=== PATIENT | male | born 1965 | race Caucasian/White ===

== ENCOUNTER 2019-11-11 11:54 | Day surgery (SDC) | payer BC, OTHER ==
--- NOTE | 2019-11-10 10:15 | P.HPIHPCON ---
History of Present Illness H&P Date: 11/10/19 Chief Complaint: prostate cancer Mr Mancini is 54 yo male with hx of burton 7(4+3) prostate cancer he elected to proceed with radiation therapy. I discussed with him the option of SpaceOR, I discussed the risk and benefit of the procedure. I discussed with him the main benefit is to reduce the effect of radiation to the rectum. I discussed risk of bleeding and infection. He understood all the risks and agreed to proceed with SpaceOR placement Consent for Procedure: I have explained the operation/procedure to the patient, including the risks, benefits, side effects, alternative therapies (including not receiving the proposed treatment or service), the likelihood of the patient achieving his/her goals, and potential recuperation problems for the procedure/sedation/analgesia, as well as any blood products, if indicated. I also explained to the patient the risks, benefits and side effects of the alternatives, as well as the risks related to not receiving the proposed procedure, care, treatment, or services. Surgical - Exam - General well developed, well nourished - Eyes PERRL, normal ocular movement - Respiratory normal expansion, normal respiratory effort - Psychiatric oriented to time, oriented to person, oriented to place Assessment and Plan Assessment: 54 yo male with hx of burton 7 (4+3) prostate cancer -OR for SpaceOR placement
[2019-11-10 13:11] VITALS: BMI 39.3
[~2019-11-11 11:54] MED LIST: DEXAMETHASONE SOD PHOSPHATE 10 MG/ML 1 ML VIAL IV ONE; HYDROmorphone 0.5 MG/0.5 ML SYRINGE IVP PRN; LACTATED RINGERS 1,000 ML IV SCH; LIDOCAINE 1% (10MG/ML) FOR IV START INTRADERMA PRN; ONDANSETRON 4 MG/2 ML VIAL IVP ONE; ONDANSETRON 4 MG/2 ML VIAL IVP PRN
[2019-11-11 13:02] LABS: Glucose,Whole Blood 138 mg/dL (75-99)
[2019-11-11] MEDS ORDERED: MIDAZOLAM 2 MG/2 ML VIAL ONE (14:00)
[2019-11-11] MEDS ORDERED: ROCURONIUM BROMIDE 10 MG/ML 5 ML VIAL IV ONE (14:00)
[2019-11-11] MEDS ORDERED: SUCCINYLCHOLINE CHLORIDE 100 MG/5 ML SYR IV ONE (14:00)
[2019-11-11] MEDS ORDERED: LIDOCAINE 1% INJ 10MG/ML (20 ML MDV) ONE (14:00)
[2019-11-11] MEDS ORDERED: fentaNYL (PF) 50 MCG/ML 2 ML AMP ONE (14:00)
[2019-11-11] MEDS ORDERED: PROPOFOL 10 MG/ML 20 ML VIAL IV ONE (14:00)
[2019-11-11] MEDS ORDERED: hydrALAZINE HCL 20 MG/ML 1 ML VIAL IVP ONE (14:50)
[2019-11-11] MEDS ORDERED: LACTATED RINGERS 1,000 ML IV ONE (14:58)
--- NOTE | 2019-11-11 15:01 | P.OP ---
Date of Procedure: 11/11/19 Preoperative Diagnosis: prostate cancer Postoperative Diagnosis: same Procedure(s) Performed: SpaceOR placement Implants: SpaceOR gel Anesthesia: ELROY Surgeon: Wil Valdovinos Estimated Blood Loss (ml): 0 Pathology: none sent Condition: stable Disposition: PACU Indications for Procedure: Mr Mancini is 54 yo male with hx of burton 7(4+3) prostate cancer he elected to proceed with radiation therapy. I discussed with him the option of SpaceOR, I discussed the risk and benefit of the procedure. I discussed with him the main benefit is to reduce the effect of radiation to the rectum. I discussed risk of bleeding and infection. He understood all the risks and agreed to proceed with SpaceOR placement Description of Procedure: The patient was taken to the operating room and placed in the dorsolithotomy position, with his legs supported in Ignacio stirrups. The external genitalia was prepped and draped sterilely. The BK transrectal ultrasound probe was placed intrarectally. The prostate was imaged. The probe was then placed within the stabilizing stand. A spinal needle was advanced under ultrasonic guidance to the level of the urogenital diaphragm, and lidocaine was used to infiltrate the tissues as the needle was withdrawn. The fiducial marker were then implanted. marker were placed at left mid,left anterior apex and right mid. Next, the SpaceOAR needle was passed through the midline of the perineum, 1-2 cm anterior to the anal opening. The needle was slowly advanced under ultrasonic guidance until the needle tip was located within the fat plane between the prostate and rectum, at the level of the mid prostate gland. The needle was confirmed to be midline on the axial imaging. A small amount of normal saline was injected for hydrodissection. Next, the SpaceOAR components were mixed and loaded into the Y connector per protocol. The Y connector was then connected to the needle, and the components were injected slowly over a course of approximately 12 seconds. A total of 10 ml was injected. Significant distance was created between the prostate and rectum, as desired. It should be noted that at no point was there any concern of rectal perforation. The needle was withdrawn, as well as the transrectal ultrasound probe, and the procedure was terminated. The patient tolerated the procedure well and was taken to the recovery room in stable condition
[2019-11-11 15:08] VITALS: TEMP 97
[2019-11-11 15:15] LABS: Glucose,Whole Blood 152 mg/dL (75-99)
[2019-11-11 15:18] VITALS: RESP 16
[2019-11-11 16:00] VITALS: BP 143/87; PULSE 68
== END 2019-11-11 16:13 | disposition home or self-care (01) ==
LOC: OR 11:54
PROVIDERS: ATTEND Urology
DX: C61 Malignant neoplasm of prostate (principal); I10 Essential (primary) hypertension; E78.5 Hyperlipidemia, unspecified; Z87.891 Personal history of nicotine dependence; E11.9 Type 2 diabetes mellitus without complications; F32.9 Major depressive disorder, single episode, unspecified; K21.9 Gastro-esophageal reflux disease without esophagitis; Z86.69 Personal history of other diseases of the nervous system and sense organs; Z97.2 Presence of dental prosthetic device (complete) (partial); Z79.1 Long term (current) use of non-steroidal anti-inflammatories (NSAID); Z79.84 Long term (current) use of oral hypoglycemic drugs; Z79.891 Long term (current) use of opiate analgesic; Z79.899 Other long term (current) drug therapy
CPT/HCPCS: 55874; J2250; J1100; J0690; J2405; J2001; J3010; J0330; J2704

== ENCOUNTER → 2021-05-31 | Day surgery (SDC) | payer OTHER ==
[2021-05-30 11:24] VITALS: BMI 41.5
[~2021-05-31] MED LIST changes: +ALPRAZolam 0.25 MG TAB PO PRN; +ALPRAZolam 0.5 MG TAB PO PRN; +ASPIRIN 325 MG TAB PO ONE; +ATORVASTATIN 80 MG TAB PO ONE; -DEXAMETHASONE SOD PHOSPHATE 10 MG/ML 1 ML VIAL IV ONE; +HEPARIN SODIUM 1,000 UN/ML (10ML VL) ONE; -HYDROmorphone 0.5 MG/0.5 ML SYRINGE IVP PRN; +IOPAMIDOL-370 125ML BTL INJ ONE; -LACTATED RINGERS 1,000 ML IV SCH; -LIDOCAINE 1% (10MG/ML) FOR IV START INTRADERMA PRN; +LIDOCAINE 1% INJ 10MG/ML (20 ML MDV) ONE; +LIDOCAINE 1% INJ 10MG/ML (20 ML MDV) SQ ONE; +MIDAZOLAM 2 MG/2 ML VIAL IV ONE; +NITROGLYCERIN SL TABS 0.4 MG TAB SUBLINGUAL PRN; -ONDANSETRON 4 MG/2 ML VIAL IVP ONE; -ONDANSETRON 4 MG/2 ML VIAL IVP PRN; +SODIUM CHLORIDE 0.9% 1,000 ML in EMPTY BAG 1 BAG IV SCH; +VERAPAMIL 2.5 MG/ML 2 ML AMP ONE; +VERAPAMIL SYRINGE (5 MG/10 ML) INTRAARTER ONE; +fentaNYL (PF) 50 MCG/ML 2 ML AMP IV ONE; +fentaNYL (PF) 50 MCG/ML 2 ML AMP ONE
[2021-05-31 06:58] LABS: Glucose,Whole Blood 136 mg/dL (75-99)
[2021-05-31 07:20] VITALS: TEMP 97.6
[2021-05-31] MEDS: HEPARIN SODIUM 1,000 UN/ML (10ML VL) IV ONE ×3 (07:49→08:36)
[2021-05-31 10:42] VITALS: BP 108/70; PULSE 67; RESP 14
--- NOTE | 2021-05-31 10:52 | CC ---
CARDIAC CATHETERIZATION REPORT INDICATION: This is a 56-year-old gentleman who presented to us with chest pain and had a stress test that showed a partially reversible inferior wall defect. He was advised to undergo cardiac catheterization for further evaluation. Patient has been explained risks, benefits and alternatives, understood and accepted. PROCEDURE NOTE: After obtaining informed consent, left heart catheterization and coronary angiogram were performed via the right radial artery using size 3.5 right and left Elise and a pigtail catheter. Patient tolerated the procedure well without any obvious immediate complications. He received moderate conscious sedation. Total sedation time was 20 minutes. We obtained right radial artery access using a micropuncture needle, and catheter and wire were manipulated into the ascending aorta under fluoroscopic guidance, where the catheters were exchanged. FINDINGS: HEMODYNAMICS: Left ventricular end-diastolic pressure is 8 to 10 mm. There is no significant gradient across the aortic valve. LEFT VENTRICULOGRAM: Left ventriculogram was not performed. ANGIOGRAPHIC DATA Right coronary artery. Right coronary artery is a large dominant vessel that is totally occluded in the proximal part with extensive collaterals to the distal RCA. Left main coronary artery is a normal-sized vessel and is free of stenosis. It divides into left anterior descending coronary artery and circumflex coronary artery. LAD and its branches are free of significant stenosis. Circumflex coronary artery gives off a large-caliber OM branch which is free of significant disease. The AV groove circumflex appears occluded. CONCLUSIONS: Severe two-vessel coronary artery disease as described above with a stress test abnormality in the right coronary artery distribution. PLAN: I am going to review the angiographic data with Dr. Weiner, the on-call mold filler, and decide on catheter-based revascularization of the right coronary artery. MMODL / IJN: [id number] /
--- NOTE | 2021-05-31 17:57 | P.OP ---
Description of Procedure: PROCEDURES PERFORMED: Right coronary angiography, attempted wiring of RCA INDICATION: Chest pain with exertion concerning for angina, abnormal stress test HPI: Patient is a pleasant 56 year old male who has been having chest pain off and on for a few years however felt to be worse recently, fairly consistently with exertion. Patient had diagnostic catheterization which showed RCA MACHINIST MATE as well as subtotalled circumflex which was small caliber. Given some concern of a more acute process within the last few weeks with worsened symptoms the RCA lesion was felt maybe a softer plaque. Therefore the decision was made to perform wiring and possible PCI. He has noted blood in his stool as well. PROCEDURE: After the risks, benefits and alternatives of the above mentioned procedure explained in detail with the patient, informed consent was obtained. Patient had already been taken to the catheterization lab and prepped and draped in usual fashion. A 6-Syriac sheath had already been placed in the right radial artery. Heparin was given. Initially attempted a 6Fr AL 0.75 and AL 1.0 however not adequately engaged therefore a 6Fr AL 2.0 guide was used to engage the RCA. Using a guideliner and a Supercross microcatheter, initially we attempted wiring with a 0.014 BMW wire then with a 0.014 Fielder XT. Antegrade approach was not proving easily accessible and due to contrast limit, further attempts were aborted. The right radial sheath was removed and a TR band was placed with hemostasis achieved. The patient tolerated the procedure well. Patient was transported back to the post catheterization holding area in stable condition. Conscious Sedation: Patient was monitored under the direct supervision of vision of myself for conscious sedation using Versed and fentanyl for a total duration of 30 minutes FINAL IMPRESSION: 1. RCA MACHINIST MATE and subototally occluded circumflex 2. Recent hematochezia PLAN: 1. Aggressive risk factor modification per most recent ACC/AHA guidelines. 2. Recommend trial of dual antiplatelets to ensure hgb, hematochezia stay stable. If patient remains stable and still has angina would recommend reattempt at MACHINIST MATE PCI RCA.
== END ==
LOC: CATHCVL 06:05
PROVIDERS: ATTEND Internal Medicine Cardiovascular Disease
DX: I25.10 Atherosclerotic heart disease of native coronary artery without angina pectoris (principal); I10 Essential (primary) hypertension; E78.5 Hyperlipidemia, unspecified; Z82.49 Family history of ischemic heart disease and other diseases of the circulatory system; Z72.0 Tobacco use
CPT/HCPCS: 93458; C1769 ×2; C1887 ×4; C1894; J2250; J2001; J3010; J1644; Q9967

== ENCOUNTER → 2021-07-04 | Day surgery (SDC) | payer OTHER ==
[2021-07-02 16:17] VITALS: BMI 40.4
[~2021-07-04] MED LIST changes: -ASPIRIN 325 MG TAB PO ONE; +ASPIRIN 325 MG TAB PO STA; -ATORVASTATIN 80 MG TAB PO ONE; +ATORVASTATIN 80 MG TAB PO STA; -HEPARIN SODIUM 1,000 UN/ML (10ML VL) ONE; +HEPARIN SODIUM,PORCINE 10,000 UNIT in SODIUM CHLORIDE 0.9% 1,000 ML IRRIGATION PRN; +HEPARIN SODIUM,PORCINE 2,500 UNIT in SODIUM CHLORIDE 0.9% 250 ML IRRIGATION PRN; -IOPAMIDOL-370 125ML BTL INJ ONE; -LIDOCAINE 1% INJ 10MG/ML (20 ML MDV) ONE; -LIDOCAINE 1% INJ 10MG/ML (20 ML MDV) SQ ONE; -MIDAZOLAM 2 MG/2 ML VIAL IV ONE; -VERAPAMIL 2.5 MG/ML 2 ML AMP ONE; -VERAPAMIL SYRINGE (5 MG/10 ML) INTRAARTER ONE; -fentaNYL (PF) 50 MCG/ML 2 ML AMP IV ONE; -fentaNYL (PF) 50 MCG/ML 2 ML AMP ONE
== END ==
LOC: CATHCVL 10:51
PROVIDERS: ATTEND Internal Medicine
DX: Z53.9 Procedure and treatment not carried out, unspecified reason (principal)

== ENCOUNTER 2021-08-08 10:17 | Day surgery (SDC) | payer OTHER ==
[2021-08-07 09:21] VITALS: BMI 41.5
[~2021-08-08 10:17] MED LIST changes: +ASPIRIN 325 MG TAB PO ONE; -ASPIRIN 325 MG TAB PO STA; +ATORVASTATIN 80 MG TAB PO ONE; -ATORVASTATIN 80 MG TAB PO STA; -SODIUM CHLORIDE 0.9% 1,000 ML in EMPTY BAG 1 BAG IV SCH
[2021-08-08] MEDS ORDERED: CLOPIDOGREL 75 MG TAB ONE ×2 (10:42→10:53)
[2021-08-08] MEDS: SODIUM CHLORIDE 0.9% 1,000 ML in EMPTY BAG 1 BAG IV SCH ×3 (10:45→23:11)
[2021-08-08 10:51] LABS: Glucose,Whole Blood 122 mg/dL (70-110)
[2021-08-08 11:13] LABS: Basophils # (A) 0.1 k/uL (0-0.2); Basophils % (A) 2 %; Eosinophils # (A) 0.2 k/uL (0-0.7); Eosinophils % (A) 3 %; HCT 38.5 % (39.0-53.0); Lymphocytes % (A) 19 %; MCH 29.5 pg (25.0-35.0); MCHC 33.8 g/dL (31.0-37.0); MCV 87.2 fL (80.0-100.0); Mean Platelet Volume 7.7; Monocytes # (A) 0.4 k/uL (0-1.0); Monocytes % (A) 7 %; Neutrophils # (A) 3.8 k/uL (1.3-7.7); Neutrophils % (A) 68 %; Platelet Count 190 k/uL (150-450); RBC 4.42 m/uL (4.30-5.90); RDW 14.9 % (11.5-15.5); WBC 5.6 k/uL (3.8-10.6)
[2021-08-08] MEDS ORDERED: fentaNYL (PF) 50 MCG/ML 2 ML AMP ONE (13:52)
[2021-08-08] MEDS ORDERED: HEPARIN SODIUM 1,000 UN/ML (10ML VL) ONE ×2 (13:52→15:04)
[2021-08-08] MEDS ORDERED: VERAPAMIL 2.5 MG/ML 2 ML AMP ONE (13:52)
[2021-08-08] MEDS ORDERED: fentaNYL (PF) 50 MCG/ML 2 ML AMP IV ONE (14:03)
[2021-08-08] MEDS ORDERED: MIDAZOLAM 2 MG/2 ML VIAL IV ONE (14:03)
[2021-08-08] MEDS: LIDOCAINE 1% INJ 10MG/ML (30 ML VIAL-PF) SQ ONE ×3 (14:05→14:12)
[2021-08-08] MEDS ORDERED: LIDOCAINE 1% INJ 10MG/ML (30 ML VIAL-PF) SQ ONE ×2 (14:06→14:08)
[2021-08-08] MEDS ORDERED: VERAPAMIL SYRINGE (5 MG/10 ML) INTRAARTER ONE ×2 (14:08→14:10)
[2021-08-08] MEDS: HEPARIN SODIUM 1,000 UN/ML (10ML VL) IV ONE ×7 (14:13→15:35)
[2021-08-08] MEDS ORDERED: IOPAMIDOL-370 125ML BTL INJ ONE ×2 (15:53→15:54)
[2021-08-08] MEDS ORDERED: ZOLPIDEM 5 MG TAB PO PRN (16:20)
[2021-08-08] MEDS ORDERED: RX INFO: IV CONTRAST WAS GIVEN 1 EACH MISC MISCELLANE PRN (16:20)
[2021-08-08] MEDS ORDERED: NITROGLYCERIN SL TABS 0.4 MG TAB SUBLINGUAL PRN (16:20)
[2021-08-08] MEDS ORDERED: ATROPINE SULFATE 0.1 MG/ML 10ML SYRINGE IV PRN (16:20)
[2021-08-08] MEDS ORDERED: MAG HYDROX/AL HYDROX/SIMETH 30 ML CUP PO PRN (16:20)
--- NOTE | 2021-08-08 16:20 | P.PRCINT ---
Percutaneous Coronary Int. - Percutaneous Coronary Intervention Percutaneous Coronary Intervention: PROCEDURES PERFORMED: Bilateral coronary angiography, FORMS BUILDER procedure, PCI proximal to distal RCA with overlapping 4.0 x 28mm, 4.0 x 38mm and 3.5 x 33mm Xience VENU, post dilated mid portion with a 4.0 NC balloon INDICATION: CAD, class 3 angina HISTORY: Patient is a pleasant 56 year old male with history of CAD with documentation of FORMS BUILDER RCA who has been having frequent chest pain even at rest and with exertion despite antianginals and therefore was recommended to have FORMS BUILDER procedure. CONSENT:I have discussed the risks, benefits and alternative therapies for the above-mentioned procedure and for both sedation/analgesia as well as necessary blood product administration, if indicated, as they pertain to this patient. The patient has indicated understanding and acceptance of the risks and procedures discussed. PROCEDURE: After the risks, benefits and alternatives of the above mentioned procedure explained in detail with the patient, informed consent was obtained. Patient was taken to the catheterization lab and prepped and draped in usual fashion. 1% lidocaine was used to anesthetize the right radial artery. A 6- [place] Citizen sheath was placed in the right radial artery using modified Seldinger technique. 1% Lidocaine was used to anesthetize the right femoral artery and using micropuncture technique and ultrasound guidance a 8-[place] Citizen sheath was placed. The RCA was initially engaged with a 8-[place] Citizen AL 2 guide however was somewhat 2-D throated and therefore this was changed to a 8-[place] AL-1 guide. The left coronary artery was engaged with a 6-[place] Citizen EBU 3.5 guide. Simultaneous bilateral injections were performed which did show a long FORMS BUILDER segment of approximately 40 mm. Using a 0.014 Fielder XT in a Corsair microcatheter and with guideliner support, the lesion was able to be wired. The wire was freely moving and therefore the Corsair was moved distally and there was blood return from the Corsair. Small injection with contrast verified intraluminal positioning. Initially the wire was exchanged for a BMW wire however did not have enough support and therefore this was exchanged for a 0.014 GrandSlam wire. Next balloon angioplasty was performed with a 1.0 and then 1.5 and then 2.0 balloons. Next IVUS was performed which showed intraluminal position and reference vessel 3.5mm distally and 4.0 proximally. Therefore overlapping Xience VENU stents initially with a 3.5 x 33 mm distally, 4.0 x 38 mm in the mid segment and 4.0 x 28 mm to the ostium were placed. The midportion of the stent was postdilated with a 4.0 noncompliant balloon. The wire was pulled and final angiograms were performed. Preintervention there was 100% stenosis and JACI 0 flow and postintervention there was 0% stenosis and JACI-3 flow. The right radial sheath was removed and a TR band was placed with hemostasis achieved. A right femoral angiogram showed adequate anatomy for closure and therefore an 8-[place] Citizen Angio-Seal was placed. The patient tolerated the procedure well. Patient was transported back to the post catheterization holding area in stable condition. Conscious Sedation: Patient was monitored under the direct supervision of vision of myself for conscious sedation using Versed and fentanyl for a total duration of 92 minutes HEMODYNAMICS: Aorta: 132/76 SELECTIVE CORONARY ARTERIOGRAPHY: LEFT MAIN: Not imaged, see diagnostic note LEFT ANTERIOR DESCENDING CORONARY ARTERY: Not imaged, see diagnostic note LEFT CIRCUMFLEX CORONARY ARTERY: Not imaged, see diagnostic note RIGHT CORONARY ARTERY: The right coronary artery is a large caliber vessel which gives off a PDA and PLV branch and is the dominant vessel. There is 100% proximal RCA stenosis. FINAL IMPRESSION: 1. FORMS BUILDER of RCA with 100% stenosis 2. S/p successful PCI proximal to distal RCA with overlapping 4.0 x 28mm, 4.0 x 38mm and 3.5 x 33mm Xience VENU, post dilated mid portion with a 4.0 NC balloon PLAN: 1. Aggressive risk factor modification per most recent ACC/AHA guidelines. 2. Continue dual antiplatelets with aspirin and Plavix for 12 months.
[2021-08-08] MEDS ORDERED: traMADol 50 MG TAB PO SCH (21:00)
[2021-08-08] MEDS: PREGABALIN 100 MG CAP PO SCH (21:32)
[2021-08-09] MEDS: SODIUM CHLORIDE 0.9% 1,000 ML in EMPTY BAG 1 BAG IV SCH ×3 (01:49→08:55)
[2021-08-09 08:52] VITALS: BP 123/61; PULSE 67; RESP 18; TEMP 97.9
[2021-08-09] MEDS: PREGABALIN 100 MG CAP PO SCH (08:53)
[2021-08-09] MEDS ORDERED: CLOPIDOGREL 75 MG TAB PO SCH (09:00)
[2021-08-09] MEDS ORDERED: ASPIRIN 81 MG PO SCH (09:00)
--- NOTE | 2021-08-09 10:51 | P.DS ---
Providers Attending physician: Az Weiner DO Consults: 08/08/21 16:20 Consult Physician Routine Consulting Provider: [facility] Consult Reason/Comments: Post Interventional Patient Do you want consulting provider notified?: Already Contacted Primary care physician: Arben Ireland [facility] Course: The patient is a 56-year-old gentleman who was diagnosed recently with chest discomfort and underwent a heart catheterization revealed chronic total occlusion of the RCA and LCx. Maximize medical treatment was tried and the patient continues to be symptomatic and in the light of that he was brought to the cardiac r and d lab technician yesterday where he underwent successful opening chronic total occlusion of the RCA was a placement of 3 drug-eluting stents. He was seen this morning. The right groin is soft and nontender with a small discrete hematoma. He has a good right femoral pulse. The patient is going to be discharged home on dual antiplatelet therapy along with high intensity statin and he will follow-up with Dr. Yarbrough as an outpatient in a week. Plan - Discharge Summary Discharge Rx Participant: Yes New Discharge Prescriptions: Continue Cinnamon Bark [Cinnamon] 1,000 mg PO DAILY Calcium Carbonate [Calcium] 600 mg PO DAILY Vitamin E 180 mg PO DAILY Multivitamins, Thera [Multivitamin (formulary)] 1 tab PO DAILY [place]-3 Fatty Acids/Fish Oil [Fish Oil 1,000 mg Softgel] 1 each PO DAILY traMADol HCL [Ultram] 50 mg PO HS Meloxicam [Mobic] 7.5 mg PO HS Losartan Potassium [Cozaar] 25 mg PO DAILY Citalopram Hydrobromide [CeleXA] 40 mg PO DAILY Pregabalin 200 mg PO BID Isosorbide Mononitrate [Monoket] 30 mg PO DAILY atenoloL [Tenormin] 100 mg PO DAILY Magnesium Oxide [Mag-Ox] 400 mg PO DAILY Omeprazole [PriLOSEC] 40 mg PO DAILY Ferrous Sulfate [Feosol] 325 mg PO DAILY Aspirin [Adult Low Dose Aspirin EC] 81 mg PO DAILY Docusate Sodium [Dok] 100 mg PO DAILY Fenofibrate,Micronized [Fenofibrate] 134 mg PO DAILY Cholecalciferol [Vitamin D3 (25 Mcg = 1000 Iu)] 25 mcg PO DAILY Rosuvastatin Calcium [Crestor] 40 mg PO DAILY Clopidogrel [Plavix] 75 mg PO DAILY 60 Days #60 tablet Discontinued metFORMIN HCL [Glucophage] 250 mg PO DAILY Discharge Medication List Calcium Carbonate [Calcium] 600 mg PO DAILY 11/10/19 [History] Cinnamon Bark [Cinnamon] 1,000 mg PO DAILY 11/10/19 [History] Citalopram Hydrobromide [CeleXA] 40 mg PO DAILY 11/10/19 [History] Isosorbide Mononitrate [Monoket] 30 mg PO DAILY 11/10/19 [History] Losartan Potassium [Cozaar] 25 mg PO DAILY 11/10/19 [History] Magnesium Oxide [Mag-Ox] 400 mg PO DAILY 11/10/19 [History] Meloxicam [Mobic] 7.5 mg PO HS 11/10/19 [History] Multivitamins, Thera [Multivitamin (formulary)] 1 tab PO DAILY 11/10/19 [History] [place]ppo-3 Fatty Acids/Fish Oil [Fish Oil 1,000 mg Softgel] 1 each PO DAILY 11/10/19 [History] Pregabalin 200 mg PO BID 11/10/19 [History] Vitamin E 180 mg PO DAILY 11/10/19 [History] atenoloL [Tenormin] 100 mg PO DAILY 11/10/19 [History] traMADol HCL [Ultram] 50 mg PO HS 11/10/19 [History] Cholecalciferol [Vitamin D3 (25 Mcg = 1000 Iu)] 25 mcg PO DAILY 06/13/20 [History] Rosuvastatin Calcium [Crestor] 40 mg PO DAILY 06/13/20 [History] Ferrous Sulfate [Feosol] 325 mg PO DAILY 05/30/21 [History] Omeprazole [PriLOSEC] 40 mg PO DAILY 05/30/21 [History] Clopidogrel [Plavix] 75 mg PO DAILY 60 Days #60 tablet 05/31/21 [Rx] Aspirin [Adult Low Dose Aspirin EC] 81 mg PO DAILY 07/02/21 [History] Docusate Sodium [Dok] 100 mg PO DAILY 07/02/21 [History] Fenofibrate,Micronized [Fenofibrate] 134 mg PO DAILY 08/07/21 [History] Follow up Appointment(s)/Referral(s): Roberth Yarbrough MD [STAFF PHYSICIAN] - 08/16/21 3:15 pm (Dr. Yarbrough will not be in [place] for [facility], so your appt is @ [facility].)
== END 2021-08-09 12:19 | disposition home or self-care (01) ==
LOC: CATHCVL 10:17 → 3SCARD 15:37 → CATHCVL 08-09 12:19
PROVIDERS: ATTEND Internal Medicine
DX: I25.118 Atherosclerotic heart disease of native coronary artery with other forms of angina pectoris (principal); I25.119 Atherosclerotic heart disease of native coronary artery with unspecified angina pectoris; I25.82 Chronic total occlusion of coronary artery; I10 Essential (primary) hypertension; E78.5 Hyperlipidemia, unspecified; Z20.822 Contact with and (suspected) exposure to COVID-19; E11.9 Type 2 diabetes mellitus without complications; Z82.49 Family history of ischemic heart disease and other diseases of the circulatory system; Z85.46 Personal history of malignant neoplasm of prostate; Z90.49 Acquired absence of other specified parts of digestive tract; Z98.890 Other specified postprocedural states; M19.90 Unspecified osteoarthritis, unspecified site; Z82.3 Family history of stroke; Z87.891 Personal history of nicotine dependence; Z79.84 Long term (current) use of oral hypoglycemic drugs; Z79.82 Long term (current) use of aspirin; Z79.899 Other long term (current) drug therapy
CPT/HCPCS: 92978; 82565; 85025; 87635; C9607; C1769 ×6; C1887 ×4; C1894 ×4; C1725 ×4; C1753; C1874 ×3; C1751; J2250; J2001; J3010; J1644; Q9967